=== PATIENT | male | born 1945 | race African-American/Black ===

== ENCOUNTER 2018-09-02 06:23 | Inpatient (IN) | payer MEDICARE, MEDICAID ==
[~2018-09-02] VITALS: Ht 162.6 cm; Wt 61.2 kg
[2018-09-02] MEDS ORDERED: SODIUM CHLORIDE 0.9% 1,000 ML IV ONE (07:42)
[2018-09-02] MEDS ORDERED: MORPHINE SULFATE 4 MG/ML CPJ (NOT FOR IM USE) IV STA (07:42)
[2018-09-02] MEDS ORDERED: ONDANSETRON HCL 4MG/2ML INJ IV STA (07:42)
[2018-09-02 08:02] LABS: HEMATOCRIT. 34.7 % (42.0-52.0); HEMOGLOBIN. 11.6 g/dL (14.0-18.0); MEAN CORPUSCULAR HEMOGLOBIN 32.6 pg (28.0-32.0); MEAN CORPUSCULAR VOLUME 97.9 fL (80.0-94.0); PLATELET 175 x1000/uL (130-400); RED BLOOD CELL COUNT 3.54 mill/uL (4.7-6.1); RED CELL DISTRIBUTION WIDTH 11.7 % (11.6-14.6)
[2018-09-02 08:08] LABS: CHLORIDE 98 mEq/L (98-107)
[2018-09-02 08:11] LABS: INR 1.2; PARTIAL THROMBOPLASTIN TIME 28.5 sec (23.4-31.0); PROTHROMBIN TIME 12.5 sec (9.6-11.0)
[2018-09-02 08:16] LABS: CLARITY URINE CLEAR (CLEAR); COLOR URINE YELLOW (YELLOW); KETONES URINE 1+ (NEGATIVE); LEUKOCYTE ESTERASE URINE NEGATIVE (NEGATIVE); NITRITE URINE NEGATIVE (NEGATIVE); OCCULT BLOOD URINE 1+ (NEGATIVE); PROTEIN URINE NEGATIVE (NEGATIVE); SPECIFIC GRAVITY URINE 1.015 (1.005-1.030)
[2018-09-02 08:49] LABS: PLATELET ESTIMATE NORMAL
[2018-09-02] MEDS ORDERED: ASPIRIN 81MG TABLET PO ONE (09:30)
[2018-09-02] MEDS ORDERED: ONDANSETRON HCL 4MG/2ML INJ IV PRN (11:00)
[2018-09-02 11:30] VITALS: BP 160/79
[2018-09-02] MEDS: DOCUSATE SODIUM 250MG CAPSULE PO SCH (14:22)
[2018-09-02] MEDS ORDERED: CARV3.1242 MT (15:08)
[2018-09-02] MEDS ORDERED: BENA10TA10 MT (15:08)
[2018-09-02] MEDS ORDERED: POTASSIUM (15:08)
[2018-09-02] MEDS ORDERED: LEVO500T89 MT (15:08)
[2018-09-02] MEDS ORDERED: DONE10TA43 MT (15:08)
[2018-09-02] MEDS ORDERED: TAMS0.4C31 MT (15:08)
[2018-09-02] MEDS ORDERED: CARVEDILOL 3.125 MG TABLET PO SCH (17:45)
[2018-09-02 20:00] VITALS: BP 125/57
[2018-09-02] MEDS: CARVEDILOL 3.125 MG TABLET PO SCH (21:35)
[2018-09-02] MEDS: LACTULOSE 20G/30ML UDC PO PRN (21:46)
[2018-09-02 22:48] LABS: *AMPHETAMINES SCREEN URINE NEGATIVE (NEGATIVE); *BARBITURATES SCREEN URINE NEGATIVE (NEGATIVE); *BENZODIAZEPINES SCREEN URINE NEGATIVE (NEGATIVE)
[2018-09-02 22:49] LABS: *COCAINE SCREEN URINE NEGATIVE (NEGATIVE); CANNABINOID URINE SCREEN PRESUMTIVE POSITIVE (NEGATIVE); METHADONE URINE SCREEN NEGATIVE (NEGATIVE); OPIATES URINE SCREEN PRESUMTIVE POSITIVE (NEGATIVE); PHENCYCLIDINE URINE SCREEN NEGATIVE (NEGATIVE)
[2018-09-03] VITALS: BP 122/55
[2018-09-03 04:00] VITALS: BP 123/49
[2018-09-03] MEDS: MORPHINE SULFATE 4 MG/ML CPJ (NOT FOR IM USE) IV PRN ×2 (04:15→08:33)
[2018-09-03 06:14] LABS: HEMATOCRIT. 29.7 % (42.0-52.0); HEMOGLOBIN. 9.9 g/dL (14.0-18.0); MEAN CORPUSCULAR HEMOGLOBIN 32.5 pg (28.0-32.0); MEAN CORPUSCULAR VOLUME 97.5 fL (80.0-94.0); MEAN PLATELET VOLUME 8.7 fl (7.4-10.4); PLATELET 166 x1000/uL (130-400); RED BLOOD CELL COUNT 3.04 mill/uL (4.7-6.1); RED CELL DISTRIBUTION WIDTH 11.7 % (11.6-14.6)
[2018-09-03 08:00] VITALS: BP 122/61
[2018-09-03] MEDS: TAMSULOSIN HCL 0.4MG SR CAPSULE PO SCH (08:31)
[2018-09-03] MEDS: BENAZEPRIL 10MG TABLET PO SCH (08:32)
[2018-09-03] MEDS: DONEPEZIL HCL 10MG TABLET PO SCH (08:32)
[2018-09-03] MEDS: ASPIRIN 81MG TABLET PO SCH (08:32)
[2018-09-03] MEDS: DOCUSATE SODIUM 250MG CAPSULE PO SCH (08:32)
[2018-09-03] MEDS: CARVEDILOL 3.125 MG TABLET PO SCH ×2 (08:32→21:00)
[2018-09-03] MEDS ORDERED: TAMSULOSIN HCL 0.4MG SR CAPSULE PO SCH (09:00)
[2018-09-03 09:09] LABS: CHLORIDE 101 mEq/L (98-107)
[2018-09-03] MEDS: ACETAMINOPHEN 325MG TABLET PO PRN (11:24)
[2018-09-03 16:00] VITALS: BP 115/76
[2018-09-03 18:44] LABS: CLARITY URINE CLOUDY (CLEAR); COLOR URINE ORANGE (YELLOW); KETONES URINE TRACE (NEGATIVE); LEUKOCYTE ESTERASE URINE 2+ (NEGATIVE); NITRITE URINE POSITIVE (NEGATIVE); OCCULT BLOOD URINE 2+ (NEGATIVE); PH URINE 5.5 (4.5-8.0); PROTEIN URINE 1+ (NEGATIVE); SPECIFIC GRAVITY URINE 1.027 (1.005-1.030)
[2018-09-03 20:00] VITALS: BP 115/48
[2018-09-04] VITALS: BP 140/50
[2018-09-04] MEDS: NA PHOS,M-B/NA PHOS,DI-BA ENEMA 118ML PR PRN (00:36)
[2018-09-04 04:00] VITALS: BP 138/52
[2018-09-04] MEDS: MORPHINE SULFATE 4 MG/ML CPJ (NOT FOR IM USE) IV PRN ×2 (05:12→09:09)
[2018-09-04 06:26] LABS: HEMOGLOBIN. 9.9 g/dL (14.0-18.0); MEAN CORPUSCULAR HEMOGLOBIN 32.4 pg (28.0-32.0); MEAN CORPUSCULAR VOLUME 98.2 fL (80.0-94.0); MEAN PLATELET VOLUME 8.7 fl (7.4-10.4); PLATELET 157 x1000/uL (130-400); RED BLOOD CELL COUNT 3.05 mill/uL (4.7-6.1)
[2018-09-04 06:46] LABS: PLATELET ESTIMATE NORMAL
[2018-09-04 06:47] LABS: CHLORIDE 101 mEq/L (98-107)
[2018-09-04 08:00] VITALS: BP 160/89
[2018-09-04] MEDS: TAMSULOSIN HCL 0.4MG SR CAPSULE PO SCH (09:01)
[2018-09-04] MEDS: DONEPEZIL HCL 10MG TABLET PO SCH (09:02)
[2018-09-04] MEDS: BENAZEPRIL 10MG TABLET PO SCH (09:02)
[2018-09-04] MEDS: DOCUSATE SODIUM 250MG CAPSULE PO SCH (09:03)
[2018-09-04] MEDS: ASPIRIN 81MG TABLET PO SCH (09:03)
[2018-09-04] MEDS: CARVEDILOL 3.125 MG TABLET PO SCH (09:06)
[2018-09-04] MEDS ORDERED: POTASSIUM CHLORIDE 20MEQ TABLET SR PO NR (11:45)
[2018-09-04 12:00] VITALS: BP 123/67
[2018-09-04 16:00] VITALS: BP 157/89
[2018-09-04 16:28] LABS: PLATELET ESTIMATE NORMAL
[2018-09-04] MEDS: ACETAMINOPHEN 325MG TABLET PO PRN (16:55)
[2018-09-04] MEDS: CEFTRIAXONE 1 G PREMIX 50 ML IV SCH (18:38)
[2018-09-04] MEDS: SODIUM CHLORIDE 0.9% 1,000 ML IV SCH (18:39)
[2018-09-04 20:20] VITALS: BP 125/69
[2018-09-04] MEDS: CARVEDILOL 6.25 MG TABLET PO SCH (21:14)
[2018-09-05 00:02] VITALS: BP 117/88
[2018-09-05 03:36] VITALS: BP 140/79
[2018-09-05] MEDS: LACTULOSE 20G/30ML UDC PO PRN (03:39)
[2018-09-05] MEDS: MORPHINE SULFATE 4 MG/ML CPJ (NOT FOR IM USE) IV PRN ×2 (03:39→10:06)
[2018-09-05 06:21] LABS: HEMATOCRIT. 30.1 % (42.0-52.0); HEMOGLOBIN. 10.2 g/dL (14.0-18.0); MEAN CORPUSCULAR HEMOGLOBIN 33.1 pg (28.0-32.0); MEAN CORPUSCULAR VOLUME 97.8 fL (80.0-94.0); MEAN PLATELET VOLUME 8.7 fl (7.4-10.4); PLATELET 156 x1000/uL (130-400); RED BLOOD CELL COUNT 3.07 mill/uL (4.7-6.1)
[2018-09-05 07:35] LABS: CHLORIDE 101 mEq/L (98-107)
[2018-09-05 07:45] LABS: PLATELET ESTIMATE NORMAL
[2018-09-05 08:00] VITALS: BP_SYST 116; BP_SYST 140; BP_DIAS 66; BP_DIAS 70
[2018-09-05] MEDS: DONEPEZIL HCL 10MG TABLET PO SCH (09:30)
[2018-09-05] MEDS: TAMSULOSIN HCL 0.4MG SR CAPSULE PO SCH (09:31)
[2018-09-05] MEDS: DOCUSATE SODIUM 250MG CAPSULE PO SCH (09:31)
[2018-09-05] MEDS: BENAZEPRIL 10MG TABLET PO SCH (09:32)
[2018-09-05] MEDS: ASPIRIN 81MG TABLET PO SCH (09:32)
[2018-09-05] MEDS: CARVEDILOL 6.25 MG TABLET PO SCH ×2 (09:32→21:00)
[2018-09-05] MEDS: SODIUM CHLORIDE 0.9% 1,000 ML IV SCH ×2 (09:33→21:15)
[2018-09-05] MEDS: ACETAMINOPHEN 325MG TABLET PO PRN (10:06)
[2018-09-05 13:11] VITALS: BP 130/50
[2018-09-05] MEDS: MORPHINE SULFATE 15MG TABLET SR PO SCH ×2 (14:44→21:16)
[2018-09-05 16:00] VITALS: BP 125/70
[2018-09-05] MEDS: CEFTRIAXONE 1 G PREMIX 50 ML IV SCH (18:27)
[2018-09-05 20:00] VITALS: BP 107/54
[2018-09-06] VITALS: BP 115/66
[2018-09-06 04:00] VITALS: BP 121/79
[2018-09-06 06:13] LABS: HEMATOCRIT. 29.8 % (42.0-52.0); HEMOGLOBIN. 9.9 g/dL (14.0-18.0); MEAN CORPUSCULAR VOLUME 99.3 fL (80.0-94.0); PLATELET 147 x1000/uL (130-400); RED CELL DISTRIBUTION WIDTH 12.1 % (11.6-14.6)
[2018-09-06 07:11] LABS: CHLORIDE 102 mEq/L (98-107)
[2018-09-06 08:00] VITALS: BP 120/59
[2018-09-06] MEDS: MORPHINE SULFATE 15MG TABLET SR PO SCH (08:14)
[2018-09-06] MEDS: BENAZEPRIL 10MG TABLET PO SCH (09:39)
[2018-09-06] MEDS: DOCUSATE SODIUM 250MG CAPSULE PO SCH (09:39)
[2018-09-06] MEDS: DONEPEZIL HCL 10MG TABLET PO SCH (09:40)
[2018-09-06] MEDS: CARVEDILOL 6.25 MG TABLET PO SCH (09:40)
[2018-09-06] MEDS: ASPIRIN 81MG TABLET PO SCH (09:40)
[2018-09-06] MEDS: TAMSULOSIN HCL 0.4MG SR CAPSULE PO SCH (09:40)
[2018-09-06] MEDS: HYDROCODONE/ACETAMINOPHEN 5/325MG TABLET PO PRN (09:46)
[2018-09-06 12:00] VITALS: BP 97/53
[2018-09-06] MEDS: DILTIAZEM HCL 60MG TABLET PO SCH ×2 (13:35→20:58)
[2018-09-06] MEDS: MORPHINE SULFATE 4 MG/ML CPJ (NOT FOR IM USE) IV PRN ×2 (13:38→19:17)
[2018-09-06 16:00] VITALS: BP 101/60
[2018-09-06 17:01] LABS: PLATELET ESTIMATE NORMAL
[2018-09-06] MEDS: CEFTRIAXONE 1 G PREMIX 50 ML IV SCH (18:02)
[2018-09-06 20:00] VITALS: BP 119/62
[2018-09-06] MEDS: ACETAMINOPHEN 325MG TABLET PO PRN (20:58)
[2018-09-06] MEDS: MORPHINE SULFATE 30MG TABLET SR PO SCH (20:59)
[2018-09-06] MEDS: SODIUM CHLORIDE 0.9% 1,000 ML IV SCH (20:59)
[2018-09-07] VITALS: BP 96/56
[2018-09-07 04:00] VITALS: BP 139/61
[2018-09-07] MEDS: DILTIAZEM HCL 60MG TABLET PO SCH ×3 (06:07→20:27)
[2018-09-07] MEDS: ACETAMINOPHEN 325MG TABLET PO PRN (06:07)
[2018-09-07 08:00] VITALS: BP 105/50
[2018-09-07] MEDS ORDERED: BENAZEPRIL 5MG TABLET PO SCH (09:00)
[2018-09-07] MEDS: DONEPEZIL HCL 10MG TABLET PO SCH (09:55)
[2018-09-07] MEDS: ASPIRIN 81MG TABLET PO SCH (09:56)
[2018-09-07] MEDS: DOCUSATE SODIUM 250MG CAPSULE PO SCH ×2 (09:56→17:11)
[2018-09-07] MEDS: MORPHINE SULFATE 30MG TABLET SR PO SCH ×2 (09:56→20:26)
[2018-09-07] MEDS: TAMSULOSIN HCL 0.4MG SR CAPSULE PO SCH (09:57)
[2018-09-07] MEDS: SODIUM CHLORIDE 0.9% 1,000 ML IV SCH ×2 (10:10→22:52)
[2018-09-07 12:00] VITALS: BP 113/86
[2018-09-07] MEDS: HYDROCODONE/ACETAMINOPHEN 5/325MG TABLET PO PRN ×2 (12:44→19:37)
[2018-09-07 16:00] VITALS: BP 120/46
[2018-09-07] MEDS: MORPHINE SULFATE 2 MG/ML CPJ (NOT FOR IM USE) IV PRN ×2 (17:13→22:52)
[2018-09-07] MEDS: CEFTRIAXONE 1 G PREMIX 50 ML IV SCH (18:05)
[2018-09-07 20:00] VITALS: BP 114/66
[2018-09-07] MEDS: GLYCERIN/WITCH HAZEL LEAF MEDICATED PAD TOP SCH ×2 (20:00→20:43)
[2018-09-07] MEDS: AMIODARONE HCL 200 MG TABLET PO SCH (20:26)
[2018-09-07] MEDS: HYDROCORTISONE ACETATE 25MG SUPP PR SCH (20:27)
[2018-09-08] VITALS (7 sets, daily range): BP systolic 103–134; BP diastolic 60–82
[2018-09-08] MEDS: ACETAMINOPHEN 325MG TABLET PO PRN (00:04)
[2018-09-08] MEDS: GLYCERIN/WITCH HAZEL LEAF MEDICATED PAD TOP SCH ×5 (00:04→16:23)
[2018-09-08] MEDS: DILTIAZEM HCL 60MG TABLET PO SCH ×4 (02:28→14:59)
[2018-09-08] MEDS: MORPHINE SULFATE 2 MG/ML CPJ (NOT FOR IM USE) IV PRN (02:29)
[2018-09-08] MEDS ORDERED: MORPHINE SULFATE 4 MG/ML CPJ (NOT FOR IM USE) IV PRN (04:15)
[2018-09-08 07:14] LABS: HEMATOCRIT. 25.6 % (42.0-52.0); HEMOGLOBIN. 8.4 g/dL (14.0-18.0); MEAN CORPUSCULAR HEMOGLOBIN 32.4 pg (28.0-32.0); MEAN CORPUSCULAR VOLUME 99.1 fL (80.0-94.0); MEAN PLATELET VOLUME 8.6 fl (7.4-10.4); PLATELET 165 x1000/uL (130-400); RED BLOOD CELL COUNT 2.58 mill/uL (4.7-6.1); RED CELL DISTRIBUTION WIDTH 12.7 % (11.6-14.6)
[2018-09-08 07:48] LABS: CHLORIDE 106 mEq/L (98-107)
[2018-09-08] MEDS: HYDROCODONE/ACETAMINOPHEN 5/325MG TABLET PO PRN ×2 (08:14→15:03)
[2018-09-08] MEDS: ASPIRIN 81MG TABLET PO SCH (09:04)
[2018-09-08] MEDS: DOCUSATE SODIUM 250MG CAPSULE PO SCH ×2 (09:04→17:53)
[2018-09-08] MEDS: HYDROCORTISONE ACETATE 25MG SUPP PR SCH (09:04)
[2018-09-08] MEDS: DONEPEZIL HCL 10MG TABLET PO SCH (09:04)
[2018-09-08] MEDS: AMIODARONE HCL 200 MG TABLET PO SCH (09:04)
[2018-09-08] MEDS: MORPHINE SULFATE 30MG TABLET SR PO SCH (09:05)
[2018-09-08] MEDS: TAMSULOSIN HCL 0.4MG SR CAPSULE PO SCH (09:07)
[2018-09-08] MEDS: NA PHOS,M-B/NA PHOS,DI-BA ENEMA 118ML PR PRN (11:51)
[2018-09-08] MEDS ORDERED: SIMETHICONE 80MG TABLET CHEW PO PRN (12:45)
[2018-09-08] MEDS: SODIUM CHLORIDE 0.9% 1,000 ML IV SCH (13:05)
[2018-09-08 14:00] LABS: PLATELET ESTIMATE NORMAL
[2018-09-08] MEDS: CEFTRIAXONE 1 G PREMIX 50 ML IV SCH (18:33)
== END 2018-09-08 20:20 | disposition home or self-care (01) | DRG 871 ==
LOC: ER 06:23 → 8WST 09:59 → ENRESERV 10:33 → 7WST 09-06 09:03
PROVIDERS: ADMIT Internal Medicine; ATTEND Internal Medicine
DX: A41.9 Sepsis, unspecified organism (principal); E43 Unspecified severe protein-calorie malnutrition; E87.1 Hypo-osmolality and hyponatremia; I50.32 Chronic diastolic (congestive) heart failure; N39.0 Urinary tract infection, site not specified; C18.9 Malignant neoplasm of colon, unspecified; I47.1 Supraventricular tachycardia; I69.354 Hemiplegia and hemiparesis following cerebral infarction affecting left non-dominant side; K59.00 Constipation, unspecified; E11.9 Type 2 diabetes mellitus without complications; D50.9 Iron deficiency anemia, unspecified; F17.210 Nicotine dependence, cigarettes, uncomplicated; I11.0 Hypertensive heart disease with heart failure; J45.909 Unspecified asthma, uncomplicated; K62.7 Radiation proctitis; N40.0 Benign prostatic hyperplasia without lower urinary tract symptoms; Z68.23 Body mass index [BMI] 23.0-23.9, adult
CPT/HCPCS: 36415; 71045; 74176; 80048; 80061; 80305; 83735; 84443; 84484; 93005; 93306; 96361; 96374; 96375; 99285; C1893; J0696; J2270; J2405; J7030; J7040; J7050